=== PATIENT | female | born 1975 | race Caucasian/White ===

== ENCOUNTER 2022-02-01 06:57 | Day surgery (SDC) | payer OTHER ==
[~2022-02-01] VITALS: Ht 154.9 cm; Wt 95.3 kg
[2022-02-01] MEDS ORDERED: fentaNYL citrate 0.05 MG/ML VIAL ONE (08:59)
[2022-02-01] MEDS ORDERED: MIDAZOLAM 5 MG/5 ML VIAL ONE (08:59)
[2022-02-01] MEDS ORDERED: LIDOCAINE 2% 100 MG/5 ML UJET TP ONE (08:59)
[2022-02-01] MEDS ORDERED: fentaNYL citrate 0.05 MG/ML VIAL IVP ONE (11:15)
[2022-02-01] MEDS ORDERED: MIDAZOLAM 2 MG/2 ML VIAL IVP ONE (11:15)
== END 2022-02-01 10:24 | disposition home or self-care (01) ==
LOC: MOR 06:57 → MMU 06:57 → MOR 10:24
PROVIDERS: ATTEND Internal Medicine Gastroenterology
DX: K62.5 Hemorrhage of anus and rectum (principal); K59.00 Constipation, unspecified; K21.9 Gastro-esophageal reflux disease without esophagitis; K57.30 Diverticulosis of large intestine without perforation or abscess without bleeding; K64.9 Unspecified hemorrhoids; K44.9 Diaphragmatic hernia without obstruction or gangrene; Z87.891 Personal history of nicotine dependence; E66.9 Obesity, unspecified; Z20.822 Contact with and (suspected) exposure to COVID-19; Z79.899 Other long term (current) drug therapy
CPT/HCPCS: 43235; 45378; 81025; 87426; J2250; J3010